=== PATIENT | male | born 2000 | race Hispanic/Latino ===

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

== ENCOUNTER 2022-01-07 18:06 | Emergency (ER) | payer OTHER ==
[~2022-01-07] VITALS: Ht 180.3 cm; Wt 81.6 kg
[2022-01-07] MEDS ORDERED: CEPHALEXIN 250 MG CAPSULE ONE (18:58)
[2022-01-07] MEDS ORDERED: CEPHALEXIN 500 MG CAPSULE PO ONE (19:00)
[2022-01-07] MEDS ORDERED: ACETAMINOPHEN WITH CODEINE 1 TAB TAB PO ONE (19:00)
[2022-01-07] MEDS ORDERED: LIDOCAINE HCL 1% 20 ML VIAL INJ SCH (19:00)
[2022-01-07 19:14] VITALS: BP 155/84
[2022-01-07] MEDS ORDERED: IBUP-2071 PO (19:27)
[2022-01-07] MEDS ORDERED: CEPH500B PO (19:27)
== END 2022-01-07 19:40 | disposition home or self-care (01) ==
LOC: EDH 18:06
DX: L60.0 Ingrowing nail (principal)
CPT/HCPCS: 11730